=== PATIENT | female | born 1985 | race Caucasian/White ===

== ENCOUNTER 2025-05-23 15:59 | Emergency (ER) | payer MEDICAID, SELFPAY ==
[2025-05-23 16:01] VITALS: BMI 25.7
[2025-05-23 16:29] VITALS: BP 155/98; PULSE 89; RESP 19; TEMP 37.2; O2SAT 99
--- NOTE | 2025-05-23 16:49 | EDNOTE_ITS ---
ED Dental RME/HPI General Chief complaint: Dental/Oral/Throat Stated complaint: RIGHT UPPER TOOTH PAIN, SWELLING TO CHEEK, DIZZY Time Seen by Provider: 05/23/25 16:18 Arrival date/time: 05/23/25 15:59 Limitations: no limitations RME / HPI RME / HPI Narrative: patient p/w right upper tooth pain. Denies facial swelling, difficulty breathing/swallowing. No recent trauma, fevers, chills, nausea vomiting. Related Data Previous Rx's ?Medication ?Instructions ?Recorded amoxicillin 875 mg tablet 875 mg PO Q12H #14 tabs 05/02 12/23 Allergies Allergy/AdvReac Type Severity Reaction Status Date / Time No Known Allergies Allergy Verified 05/23/25 16:00 ED Exam General Limitations: Present no limitations General appearance: Present in no apparent distress Head Head exam: Present atraumatic and normocephalic Eye Eye exam: Present normal appearance, PERRL and EOMI ENT ENT exam: Present normal oropharynx, mucous membranes moist, normal external ear exam and other (mild swelling in the right upper posterior gums, uvula is midline no swelling, no posterior oropharyngeal swelling/exudates, tongue not elevated or deviated) Neck Neck exam: Present normal inspection, full ROM and trachea midline; Absent tenderness or meningismus Chest Chest inspection: Present normal inspection and symmetric chest wall rise Respiratory Respiratory exam: Present normal lung sounds bilaterally; Absent respiratory distress, wheezes or stridor Cardiovascular Cardiovascular exam: Present regular rate and normal rhythm Abdominal Exam Abdominal exam: Present soft; Absent distention, tenderness, guarding or rebound Extremities Exam Extremities exam: Present normal inspection Back Exam Back exam: Present normal inspection Neurological Exam Neurological exam: Present alert, oriented X3, CN II-XII intact and normal gait; Absent motor sensory deficit Skin Skin exam: Present warm, dry and intact Course Quality Measures none Orders Category Date Time Status Amoxicillin/Pot Clav 875 [Augmentin 875] Med 05/23/25 16:48 Discontinued 1 tab PO X1 ONE Ketorolac Inj [Toradol Inj] Med 05/23/25 16:49 Discontinued 15 mg IM X1 ONE Vital Signs Vital signs: Vital Signs Temperature 98.9 F 05/23/25 16:29 Pulse Rate 89 05/23/25 16:29 Respiratory Rate 19 05/23/25 16:29 Blood Pressure 155/98 H 05/23/25 16:29 Pulse Oximetry (%) 99 05/23/25 16:29 Oxygen Delivery Method Room Air 05/23/25 16:29 Dental / Oral MDM Narrative MDM Narrative:: Patient p/w tooth swelling at right gum swelling. patient w/o signs of RPA, PRESSURE TESTER or ludwigs angina. Patient with dental infection, no evidence of pulpitis or deep space facial infection. Ordered anx and advised to follow up with pcp and dentist. close return precautions provided. Patient data External records reviewed:: [facility] previous records Clinical information provided by:: patient Social determinants that could affect healthcare access:: none Patient has the following chronic illnesses:: none How is presenting disease/condition affected by chronic disease/condition?: no chronic disease Evaluation data The following diagnostics were reviewed and interpreted by me:: other (specify) Lab and/or radiology exams considered but not ordered:: none Interpretation Summary: see above Medications / Prescriptions Medications or Prescriptions considered but not ordered:: none Medication administrations:: Medication Administration History Discontinued Medications Amoxicillin/Clavulanate Potassium (Amoxicillin/Pot Clav 875 Tablet) 1 tab PO X1 ONE Stop: 05/23/25 16:49 Last Admin: 05/23/25 16:58 Dose: 1 tab Documented By: Ketorolac Tromethamine (Ketorolac Inj 60 Mg/2 Ml Vial) 15 mg IM X1 ONE Stop: 05/23/25 16:50 Last Admin: 05/23/25 16:59 Dose: 15 mg Documented By: see above Consultations Consultation(s) initiated? (list below): No Diagnosis Dental Differential Diagnosis: dental caries, toothache and other (dental infection ) Most likely diagnosis given after review of the tests above:: dental infection Admission Indicated Admission indicated?: not indicated Admission Request Was there a request for admission?: No Disposition Plan Disposition Plan: Discharge Discharge Attestation Discharge Attestation: The patient and all family members were given an opportunity to ask questions and understood the discharge instructions. Discharge instructions specifically effects, indications for sooner follow up or return to the emergency department, and the expected course of current diagnosis. Patient condition: Stable Discharge Plan Plan Patient Disposition: HOME (Self Care) Patient condition on transfer: Stable Prescriptions/Referrals Prescriptions/Med Rec: New amoxicillin 875 mg tablet 875 mg PO Q12H Qty: 14 0RF Referrals: No Primary/Family,Physician [Primary Care Provider] - In 1 week Problem List Clinical Impression: Dental infection Patient/Caregiver Discharge Instructions Education Materials: ED Dental Pain Additional Instructions: Please establish care with a dentist within the next 1 to 2 days. Please take your prescription Print Language: Sudanese Stand Alone Forms: Rosangela Award Info., Patient Portal Info Letter
[2025-05-23] MEDS: AMOXICILLIN/POT CLAV 875 TABLET 1 TAB PO (16:58)
[2025-05-23] MEDS: KETOROLAC INJ 60 MG/2 ML VIAL 15 MG IM (16:59)
== END 2025-05-23 17:04 | disposition home or self-care (01) ==
PROVIDERS: Emergency Provider Emergency Medicine
DX: K04.7 Periapical abscess without sinus (principal)
CPT/HCPCS: 96372; 99282; J1885; A9270